=== PATIENT | female | born 1945 | race Native Hawaiian/Other Pacific Islander ===

== ENCOUNTER 2016-10-13 14:19 | Outpatient (CLI) | payer OTHER ==
[~2016-10-13 14:19] MED LIST: AMIT25TA22 PO; COZAAR25 MG PO; DICY20TA34 PO; DILT-XR120 MG OR; PANT40TA PO
== END 2016-10-13 15:19 | disposition home or self-care (01) ==
LOC: MAMMO 14:19
DX: Z12.31 Encounter for screening mammogram for malignant neoplasm of breast (principal)
CPT/HCPCS: G0202-TC

== ENCOUNTER 2016-12-15 16:37 | Observation (INO) | payer OTHER ==
[~2016-12-15] VITALS: Ht 160 cm; Wt 108.1 kg
--- NOTE | 2016-12-15 17:00 | NUR ---
PT TO ROOM 1113 VIA WC. PT ALERT AND ORIENTED. ASSESSMENT COMPLETE. ORIENTED PT TO ROOM AND CONTROLS. PT VERBALIZED UNDERSTANDING. NAD NOTED. PT DENIES PAIN AT THIS MOMENT, STATES PAIN COMES AND GOES QUICKLY TO LEFT ARM 1730-PT TO XRAY AT THIS TIME 1755-PT RETUNRED FROM XRAY. IV STARTED TO LEFT AC WITH 22G ANGIOCATH X 2 ATTEMPTS WITH ALB DRAWS. PT TOLERATED WELL. RESP IN FOR EKG 1814- EKG SENT TO DR GREENBERG. NO NEW ORDERS AT THIS TIME.
[2016-12-15 18:38] VITALS: BP 131/64; TEMP 98.6; Ht 160 cm; Wt 108.1 kg
[2016-12-15 18:43] LABS: PLATELET COUNT 181 K/uL (152-353)
--- NOTE | 2016-12-15 19:00 | NUR ---
Received pt resting in bed with family at bedside. No distress noted. Denies pain. Alert and oriented. Call light within reach. Bed in low position. Will continue to monitor.
[2016-12-15 19:02] LABS: PARTIAL THROMBOPLASTIN TIME 24.1 SECONDS (24.5-33.6)
[2016-12-15 19:04] LABS: POTASSIUM 3.8 mmol/L (3.6-5.2); SODIUM 137 mmol/L (136-145)
[2016-12-15 20:00] VITALS: BP 128/62; TEMP 98.2
[2016-12-16] VITALS: BP 123/61; TEMP 98.1
--- NOTE | 2016-12-16 02:58 | NUR ---
Pt resting in bed. No distress noted. Denies chest pain at this time. WIll continue to monitor.
[2016-12-16 04:00] VITALS: BP 135/92; TEMP 99.1
--- NOTE | 2016-12-16 05:03 | NUR ---
Pt resting in bed. Denies chest pain at this time. No distress noted. No change in assessment. Will continue to monitor.
[2016-12-16 08:00] VITALS: BP 123/62; TEMP 98
[2016-12-16 12:00] VITALS: BP 140/65; TEMP 98.7
--- NOTE | 2016-12-16 13:30 | NUR ---
SENT LAB RESULTS TO DR GREENBERG. NO NEW ORDERS
[2016-12-16 13:35] LABS: PLATELET COUNT 175 K/uL (152-353)
[2016-12-16 14:04] LABS: POTASSIUM 3.9 mmol/L (3.6-5.2); SODIUM 141 mmol/L (136-145)
[2016-12-16 15:22] VITALS: BP 106/48; TEMP 98.7
[2016-12-16 20:00] VITALS: BP 134/53; TEMP 98.9
[2016-12-17] VITALS: BP 116/53; TEMP 98.6
[2016-12-17 04:00] VITALS: BP 152/72; TEMP 98.3
[2016-12-17 07:26] LABS: PLATELET COUNT 184 K/uL (152-353)
[2016-12-17 07:59] LABS: POTASSIUM 4.5 mmol/L (3.6-5.2); SODIUM 140 mmol/L (136-145)
[2016-12-17 08:00] VITALS: BP 114/68; TEMP 98.6
[2016-12-17 12:09] VITALS: BP 119/71; TEMP 97.9
--- NOTE | 2016-12-17 14:15 | NUR ---
D/C INSTRUCTIONS GIVEN TO PT. IV D/C'D L AC 22G CATH TIP INTACT. RX ATTACHED TO D/C INSTRUCTIONS.
== END 2016-12-17 14:10 | disposition home or self-care (01) ==
LOC: MED/SURG 16:37
PROVIDERS: ADMIT Family Medicine
DX: R07.89 Other chest pain (principal); I49.9 Cardiac arrhythmia, unspecified; J44.1 Chronic obstructive pulmonary disease with (acute) exacerbation; I10 Essential (primary) hypertension; E66.9 Obesity, unspecified; G47.19 Other hypersomnia; G83.14 Monoplegia of lower limb affecting left nondominant side
CPT/HCPCS: 36415; 80053; 82550; 83735; 84484; 85027; 85610; 85730; 93005; 96372; 99220; G0378; G0379; J1650

== ENCOUNTER 2016-12-28 15:40 | Outpatient (CLI) | payer OTHER | END 2016-12-28 16:48 | disposition home or self-care (01) | LOC: RAD 15:40 | DX: M54.16 Radiculopathy, lumbar region (principal) ==

== ENCOUNTER 2017-06-12 16:20 | Observation (INO) | payer OTHER ==
[~2017-06-12] VITALS: Ht 160 cm; Wt 105.8 kg
[2017-06-12 18:12] VITALS: BP 139/73; TEMP 98.2; Ht 160 cm; Wt 105.8 kg
[2017-06-12 18:14] LABS: PLATELET COUNT 214 K/uL (152-353)
[2017-06-12 18:33] LABS: POTASSIUM 3.6 mmol/L (3.6-5.2)
[2017-06-12] MEDS ORDERED: MELOXICAM15 MG OR (19:41)
[2017-06-12 20:09] VITALS: BP 150/80; TEMP 98.4
[2017-06-13] VITALS: BP 113/62; TEMP 98.2
[2017-06-13 04:00] VITALS: BP 195/68; TEMP 98.2
[2017-06-13 06:07] LABS: PLATELET COUNT 167 K/uL (152-353)
[2017-06-13 06:27] LABS: POTASSIUM 4.2 mmol/L (3.6-5.2); SODIUM 139 mmol/L (136-145)
[2017-06-13 07:56] VITALS: BP 156/84; TEMP 98.3
[2017-06-13 12:00] VITALS: BP 140/71; TEMP 99
[2017-06-13 16:00] VITALS: BP 127/67; TEMP 98.6
[2017-06-13 20:00] VITALS: BP 137/50; TEMP 98.1
--- NOTE | 2017-06-13 23:27 | NUR ---
06/13/17 2320 RESTING QUEITLYEYES CLOSED.CC
[2017-06-14] VITALS: BP 167/57; TEMP 98.9
[2017-06-14 04:00] VITALS: BP 140/68; TEMP 98.4
[2017-06-14 05:48] LABS: POTASSIUM 4.2 mmol/L (3.6-5.2); SODIUM 141 mmol/L (136-145)
[2017-06-14 06:15] LABS: PLATELET COUNT 163 K/uL (152-353)
--- NOTE | 2017-06-14 06:35 | NUR ---
06/14/17 0600 RESTED WELL DURING THE NIGHT NAD NOTED,SITTING ON SIDE OF BED DRINKING COFFEE.CC
[2017-06-14 08:00] VITALS: BP 140/58; TEMP 98.8
[2017-06-14 11:49] VITALS: BP 151/78; TEMP 98.6
--- NOTE | 2017-06-14 12:10 | NUR ---
IV D/C'd. NO REDNESS OR EDEMA OBSERVED. DISCHARGE INSTRUCTION SIGNED AND GIVEN. Pt. EXIT OUT OF FRONT ENTRANCE AMBULATING.
== END 2017-06-14 12:10 | disposition home or self-care (01) ==
LOC: MED/SURG 16:20
PROVIDERS: ADMIT Family Medicine
DX: E86.0 Dehydration (principal); I10 Essential (primary) hypertension; J44.9 Chronic obstructive pulmonary disease, unspecified; F17.200 Nicotine dependence, unspecified, uncomplicated; R10.13 Epigastric pain
CPT/HCPCS: 36415; 80053; 81000; 82150; 82550; 83690; 83735; 85027; 96360; 96361; 99220; G0378; G0379

== ENCOUNTER 2017-07-04 17:30 | Outpatient (CLI) | payer OTHER ==
[~2017-07-04 17:30] MED LIST changes: +MELOXICAM15 MG OR
== END 2017-07-04 18:30 | disposition home or self-care (01) ==
LOC: RAD 17:30
DX: R10.11 Right upper quadrant pain (principal)
CPT/HCPCS: 36415; 82565; 84520; Q9963

== ENCOUNTER 2017-09-07 08:11 | Outpatient (CLI) | payer OTHER | END 2017-09-07 22:15 | disposition home or self-care (01) | LOC: MRI 08:11 | DX: R55 Syncope and collapse (principal); R93.0 Abnormal findings on diagnostic imaging of skull and head, not elsewhere classified ==

== ENCOUNTER 2017-10-19 10:56 | Outpatient (CLI) | payer OTHER | END 2017-10-19 22:56 | disposition home or self-care (01) | LOC: MRI 10:56 | DX: M25.511 Pain in right shoulder (principal) ==

== ENCOUNTER → 2018-03-17 11:50 | Outpatient (CLI) | payer OTHER | END | disposition home or self-care (01) | LOC: AMB 11:50 | DX: S00.212A Abrasion of left eyelid and periocular area, initial encounter (principal); W18.39XA Other fall on same level, initial encounter; Y92.018 Other place in single-family (private) house as the place of occurrence of the external cause ==

== ENCOUNTER 2018-03-21 17:14 | Inpatient (IN) | payer OTHER ==
[~2018-03-21] VITALS: Ht 157.5 cm; Wt 109.5 kg
[2018-03-21 19:10] VITALS: BP 157/67; TEMP 98.6; Ht 157.5 cm; Wt 109.5 kg
[2018-03-21 20:55] LABS: PLATELET COUNT 185 K/uL (152-353)
[2018-03-21 21:07] LABS: POTASSIUM 3.7 mmol/L (3.6-5.2)
[2018-03-22] VITALS (7 sets, daily range): BP systolic 118–147; BP diastolic 5–65; TEMP 98.2–99
[2018-03-22 20:41] LABS: PLATELET COUNT 185 K/uL (152-353)
[2018-03-22 21:00] LABS: POTASSIUM 3.4 mmol/L (3.6-5.2)
[2018-03-23 02:31] LABS: PLATELET COUNT 169 K/uL (152-353)
[2018-03-23 02:47] LABS: POTASSIUM 3.7 mmol/L (3.6-5.2)
[2018-03-23 04:00] VITALS: BP 123/37; BP 123/53; TEMP 98.1; TEMP 98.7
[2018-03-23 08:02] VITALS: BP 139/63; TEMP 98.7
[2018-03-23 12:00] VITALS: BP 116/51; TEMP 98.3
[2018-03-23 16:00] VITALS: BP 133/55; TEMP 98.1
[2018-03-23 19:59] VITALS: BP 126/51; TEMP 98.7
[2018-03-24] VITALS: BP 134/66; TEMP 98.6
[2018-03-24 04:00] VITALS: BP 115/52; TEMP 98.8
[2018-03-24 06:21] LABS: PLATELET COUNT 190 K/uL (152-353)
[2018-03-24 06:28] LABS: POTASSIUM 4.1 mmol/L (3.6-5.2)
[2018-03-24 08:00] VITALS: BP 149/82; TEMP 98.8
[2018-03-24 11:40] VITALS: BP 154/75; TEMP 98.2
[2018-03-24 16:00] VITALS: BP 152/67; TEMP 98.1
[2018-03-24 20:00] VITALS: BP 133/65; TEMP 98.5
[2018-03-25] VITALS: BP 138/63; TEMP 98.4
[2018-03-25 03:58] VITALS: BP 157/81; TEMP 97.7
[2018-03-25 06:57] LABS: PLATELET COUNT 182 K/uL (152-353)
[2018-03-25 07:12] LABS: POTASSIUM 4.1 mmol/L (3.6-5.2)
[2018-03-25 08:00] VITALS: BP 147/80; TEMP 98.2
[2018-03-25 12:00] VITALS: BP 129/60; TEMP 97.8
[2018-03-25 16:00] VITALS: BP 146/70; TEMP 98.8
[2018-03-25 20:00] VITALS: BP 144/65; TEMP 98.5
[2018-03-26] VITALS: BP 146/84; TEMP 98.6
[2018-03-26 04:00] VITALS: BP 141/71; TEMP 98.3
[2018-03-26 06:24] LABS: PLATELET COUNT 188 K/uL (152-353)
[2018-03-26 06:36] LABS: POTASSIUM 4.2 mmol/L (3.6-5.2)
[2018-03-26 08:00] VITALS: BP 146/75; TEMP 98.3
[2018-03-26 12:05] VITALS: BP 157/78; TEMP 97.8
[2018-03-26 16:29] VITALS: BP 157/73; TEMP 98.1
[2018-03-26 20:00] VITALS: BP 143/70; TEMP 98.2
[2018-03-27] VITALS: BP 132/75; TEMP 98.7
[2018-03-27 04:00] VITALS: BP 137/71; TEMP 98.1
[2018-03-27 07:51] LABS: PLATELET COUNT 202 K/uL (152-353)
[2018-03-27 08:00] VITALS: BP 156/81; TEMP 98.6
[2018-03-27 08:04] LABS: POTASSIUM 4.5 mmol/L (3.6-5.2)
[2018-03-27 12:00] VITALS: BP 153/73; TEMP 97.9
== END 2018-03-27 17:50 | disposition home or self-care (01) | DRG 190 ==
LOC: MED/SURG 17:14
PROVIDERS: ADMIT Family Medicine
DX: J44.0 Chronic obstructive pulmonary disease with (acute) lower respiratory infection (principal); J18.9 Pneumonia, unspecified organism; I10 Essential (primary) hypertension; J44.1 Chronic obstructive pulmonary disease with (acute) exacerbation; R09.02 Hypoxemia; I50.9 Heart failure, unspecified; F41.8 Other specified anxiety disorders; R53.81 Other malaise
CPT/HCPCS: 36415; 80053; 82550; 82948; 83880; 84484; 85027; 87040; 93005; 94640; 94664; 94668; 94760; 96365; 96366; 96367; 96372; 96375; J0456; J0696; J1644; J1940; J2930